=== PATIENT | male | born 1970 | race Hispanic/Latino ===

== ENCOUNTER 2018-03-24 19:16 | Inpatient (IN) | payer MEDICAID ==
[2018-03-24 20:01] LABS: BASO # 0.1 K/uL (0.0-0.2); BASO % 1.2 % (0.0-2.0); EOS % 0.7 % (0.0-4.0); HEMOGLOBIN 12.7 g/dL (12.0-18.0); LYMPH # 2.1 K/uL (1.0-4.3); LYMPH % 31.6 % (20.0-40.0); MEAN CELL VOLUME 100.2 fL (80.0-94.0); MEAN CORPUSCULAR HEMOGLOBIN 33.2 pg (27.0-31.0); MEAN CORPUSCULAR HGB CONC 33.1 g/dL (33.0-37.0); MONO # 0.7 K/uL (0.0-0.8); MONO % 10.5 % (0.0-10.0); NEUT # 3.7 K/uL (1.8-7.0); RBC 3.82 Mil/uL (4.40-5.90); RED CELL DISTRIBUTION WIDTH 16.6 % (11.5-14.5); WHITE BLOOD COUNT 6.7 K/uL (4.8-10.8)
[2018-03-24 20:13] LABS: URINE AMORPHOUS SEDIMENT RARE /ul (<OCC); URINE BACTERIA FEW (<OCC); URINE BILIRUBIN NEGATIVE (NEGATIVE); URINE BLOOD NEGATIVE (NEGATIVE); URINE CLARITY Hazy (Clear); URINE COLOR Yellow (YELLOW); URINE GLUCOSE (UA) NORMAL (Normal); URINE PROTEIN 1+ mg/dL (NEGATIVE); URINE UROBILINOGEN NORMAL mg/dL (0.2-1.0)
[2018-03-24 20:16] LABS: ALB/GLOB RATIO 1.5 (1.0-2.1); ALBUMIN 3.9 g/dL (3.5-5.0); ALT/SGPT 28 U/L (21-72); AST/SGOT 30 U/L (17-59); BLOOD UREA NITROGEN 14 mg/dL (9-20); CALCIUM 9.1 mg/dl (8.6-10.4); GFR NON-AFRICAN AMERICAN > 60
[2018-03-24 20:23] LABS: URINE LEUKOCYTE ESTERASE 1+ Leu/uL (Negative)
[2018-03-24 20:25] LABS: BARBITURATES, UR NEGATIVE (NEGATIVE); BENZODIAZEPINES, UR NEGATIVE (NEGATIVE); OPIATES, UR NEGATIVE (NEGATIVE); PHENCYCLIDINE, UR NEGATIVE (NEGATIVE)
--- NOTE | 2018-03-24 21:35 | C.PDOC ---
History Of Present Illness 48 y/o male pt presents to the ER requesting detox for alcohol. Pt admits to using xanax and ceboxin as well which he buys off the street. His last alcoholic drink was last night. Pt currently has no physical complaints. Time Seen by Provider: 03/24/18 19:36 Chief Complaint (Nursing): Substance Abuse History Per: Patient History/Exam Limitations: no limitations Onset/Duration Of Symptoms: Days Current Symptoms Are (Timing): Still Present Modifying Factor(s): Alcohol, Other (xanax and ceboxin ) Past Medical History Reviewed: Historical Data, Nursing Documentation, Vital Signs Vital Signs: Last Vital Signs Temp 98 F 03/24/18 19:26 Pulse 95 H 03/24/18 19:26 Resp 20 03/24/18 19:26 BP 151/79 H 03/24/18 19:26 Pulse Ox 96 03/24/18 19:26 Surgical History: Coronary Stent Family History: States: No Known Family Hx - Social History Hx Alcohol Use: Yes Hx Substance Use: Yes - Immunization History Hx Tetanus Toxoid Vaccination: No Hx Influenza Vaccination: No Hx Pneumococcal Vaccination: No Review Of Systems Except As Marked, All Systems Reviewed And Found Negative. Constitutional: Positive for: Other (requesting detox for alcohol). Negative for: Fever, Chills Eyes: Negative for: Pain Cardiovascular: Negative for: Chest Pain Respiratory: Negative for: Cough, Shortness of Breath Gastrointestinal: Negative for: Nausea, Vomiting Genitourinary: Negative for: Dysuria, Frequency Musculoskeletal: Negative for: Back Pain Skin: Negative for: Rash Neurological: Negative for: Weakness Psych: Negative for: Suicidal ideation, Other (HI) Physical Exam - Physical Exam Appears: Non-toxic, No Acute Distress Skin: Warm, Dry Head: Normacephalic Eye(s): bilateral: Normal Inspection, EOMI Oral Mucosa: Moist Throat: Normal Neck: Normal ROM, Supple Chest: Symmetrical Cardiovascular: Rhythm Regular Respiratory: Normal Breath Sounds Gastrointestinal/Abdominal: Soft, No Tenderness Neurological/Psych: Oriented x3, Normal Speech ED Course And Treatment - Laboratory Results Result Diagrams: 03/24/18 19:57 03/24/18 19:57 O2 Sat by Pulse Oximetry: 96 (RA) Pulse Ox Interpretation: Normal Medical Decision Making Medical Decision Making: Impression: requesting detox for alcohol Reassess: Pt is resting comfortably. Pt was evaluated by crisis and is now medically cleared for admission. Disposition - Disposition Disposition: HOSPITALIZED Disposition Time: 20:30 Condition: STABLE - Clinical Impression Clinical Impression: Alcohol dependence - Scribe Statement The provider has reviewed the documentation as recorded by the Scribe Rosangela Claudio Provider Attestation: All medical record entries made by the Scribe were at my direction and personally dictated by me. I have reviewed the chart and agree that the record accurately reflects my personal performance of the history, physical exam, medical decision making, and the department course for this patient. I have also personally directed, reviewed, and agree with the discharge instructions and disposition.
[2018-03-25] MEDS ORDERED: Buprenorphine Hydrochloride 2 mg SL ONE ×2 (09:32→10:45)
[2018-03-25] MEDS: Multiple Vitamins Tab PO SCH (09:48)
--- NOTE | 2018-03-25 12:33 | PCM.BM ---
<Jaclyn Christine - Last Filed: 03/25/18 12:33> Treatment Plan Problems - Problems identified on initial assessmt Potential for opioid withdrawal Date Initiated: 03/25/18 Time Initiated: 12:31 Assessment reference: NA Status: Active Potential for alcohol withdrawal Date Initiated: 03/25/18 Time Initiated: 12:32 Assessment reference: NA Status: Active Treatment assets and liabiliti Patient Assests: cooperative, resourceful, self-reliant, cognitively intact, good interpersonal skills Patient Liabilities: financial problems, poor support system, substance abuse - Milieu Protocol Maintain good personal hygiene: daily Encourage regular showers, daily Remind patient to perform daily oral care, daily Assist patient to perform ADL's, every shift Encourage regular showers, every shift Remind patient to perform daily oral care, every shift Assist patient to perform ADL's Maintain personal safety: daily Educate patient to report safety concerns to staff, daily Monitor environment for contraband/sharps, every shift Educate patient to report safety concerns to staff, every shift Monitor environment for contraband/sharps Medication safety: Monitor for expected outcome, potential side effects: daily, every shift, Assess barriers to learning: daily, every shift, Assess readiness for medication education: daily, every shift <Anant Amos - Last Filed: 03/26/18 20:59> - Diagnosis (1) Alcohol dependence Status: Acute Interventions: 03/26/18 20:59 * Assess 7x/week regarding severity of withdrawal * Educate regarding risks, benefits, side effects and alternatives of medications * Use Motivational Interviewing for abstinence * Use CBT for relapse prevention * Medication management for withdrawal symptoms * Encourage medication assisted treatment *
--- NOTE | 2018-03-25 12:37 | PCM.PSYCH ---
Initial Psychiatric Evaluation - Initial Psychiatric Evaluation Type of Admission: Voluntary Legal Status: Capacity Chief Complaint (in patient's own words): "I need detox" History of Present Illness and Precipitating Events: The patient was seen, chart reviewed and case discussed. 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 The patient admits to drinking up to 2 pints of alcohol for the past 4 years. He started in his teens and got worse over time. This is his first detox and he has never been to rehab, NA or AA. The patient also abuses painkillers for the past 5 years, he is using 30 mg OxyContin, 2-3 times a day. He first started in 2007. He states that he used Suboxone on and off for 7 years, to come off OxyContin and currently he is taking [address] He also uses Xanax about 2 mg a day. He started 20 years ago. He quit smoking 6 months ago. Denies other drugs. He suffers from panic attacks and feels somewhat depressed. Not treated. Past psychiatric: Panic disorder, no admissions and no suicide attempts. Family psychiatric: Brother is an alcoholic he says and there are people with panic disorder. Medical history: He has high blood pressure, heart disease and he had a stent placement. Current Medications: Active Medications Generic Name Dose Route Start Last Admin Trade Name Freq PRN Reason Stop Dose Admin Buprenorphine HCl 0 mg 03/26/18 10:00 Subutex SL 03/30/18 09:59 .TAPER [place] Taper Chlordiazepoxide 50 mg 03/25/18 00:00 03/25/18 11:57 Librium PO 03/29/18 23:59 50 mg Q6 [place] Administration Taper Chlordiazepoxide 25 mg 03/24/18 22:33 Librium PO Q4H PRN Alcohol Withdrawal Clonidine HCl 0.1 mg 03/24/18 22:33 03/25/18 06:01 Catapres PO 0.1 mg Q4H PRN Administration Symptoms of alcohol withdrawl Folic Acid 1 mg 03/25/18 10:00 03/25/18 09:48 Folic Acid PO 1 mg DAILY [place] Administration Gabapentin 300 mg 03/25/18 10:00 03/25/18 09:49 Neurontin PO 300 mg BID [place] Administration Hydroxyzine HCl 50 mg 03/24/18 22:38 Atarax PO Q6H PRN Anxiety Ibuprofen 600 mg 03/24/18 22:38 03/25/18 06:00 Motrin Tab PO 600 mg Q6H PRN Administration Pain, moderate (4-7) Losartan Potassium 50 mg 03/25/18 12:45 Cozaar PO DAILY [place] Metoprolol Tartrate 50 mg 03/25/18 18:00 Lopressor PO BID [place] Multivitamins 1 tab 03/25/18 10:00 03/25/18 09:48 Hexavitamin PO 1 tab DAILY [place] Administration Thiamine HCl 100 mg 03/25/18 10:00 03/25/18 09:49 Vitamin B1 Tab PO 100 mg DAILY [place] Administration Trazodone HCl 100 mg 03/24/18 22:38 03/24/18 23:32 Desyrel PO 100 mg HS PRN Administration Insomnia Past Psychiatric History - Past Psychiatric History Previous Treatment History: Intensive Outpatient Pertinent Medical Hx (Current Medical&Sleep Prob, Allergies): Allergies Allergy/AdvReac Type Severity Reaction Status Date / Time No Known Allergies Allergy Unverified 03/24/18 19:35 Review of Systems - Neurological Neurological: UNREMARKABLE - Psychiatric Psychiatric: Abnormal Sleep Pattern, Anxiety, Change in Appetite, Depression, Difficulty Concentrating, Mood Swings, Panic Attacks. absent: Homicidal Ideation, Paranoia, Suicidal Ideation Mental Status Examination - Personal Presentation Personal Presentation: Looks older than stated age - Affect Affect: Constricted - Motor Activity Motor Activity: Calm - Reliability in Providing Information Reliability in Providing Information: Good - Speech Speech: Organized - Mood Mood: Depressed, Anxious - Formal Thought Process Formal Thought Process: No Impairment - Cognitive Functions Orientation: Person, Place, Situation, Time Sensorium: Alert Attention/Concentration: Easily distracted Estimate of Intelligence: Average Judgement: Intact, as evidence by: Insight regarding need for hospitalization Memory: Recent intact, as evidence by: Ability to recall events of the day, Remote intact, as evidenced by: Abilit to recall sig. life events - Risk Risk: Withdrawal, Diminished functioning - Strength & Assets Inventory Strength & Assets Inventory: Cooperative - Limitations Limitations: Living alone DSM 5 DX - DSM 5 DSM 5 Diagnosis: Alcohol withdrawal Alcohol use disorder, severe Opioid use disorder, severe Opioid withdrawal Subjective, hypnotic or anxiolytic use disorder, moderate Tobacco use disorder in early remission Panic disorder without agoraphobia Depressive disorder, unspecified Hypertension CAD, status post stent placement - Recommended/Plan of Treatment Treatment Recommendations and Plan of Treatment: Taper with Subutex and Librium Gabapentin for augmentation Lexapro for Panic disorder As needed medications All risks, benefits and alternatives of the meds discussed, and the pt agreed and understood. Attend groups and activities Supportive therapy and psychoeducation [place] for abstinence CBT for relapse prevention Encourage MAT Refer to rehab or IOP, and self-help groups Teach healthy lifestyle methods, i.e. diet, exercise, meditation Smoking cessation with [place] Nicotine patch if needed 34 min Projected ELOS: 5 days Prognosis: good with treatment Discharge Plan and Discharge Criteria: Thank you MAT and or IOP. Patient does not want rehab - Smoking Cessation Smoking Cessation Initiated: No Reason for not providing: non-smoker
[2018-03-25] MEDS: diltiaZEM 120 mg/24 Hours CD Cap PO SCH (13:44)
[2018-03-26] MEDS: Multiple Vitamins Tab PO SCH (09:07)
[2018-03-26] MEDS: diltiaZEM 120 mg/24 Hours CD Cap PO SCH (09:08)
[2018-03-26] MEDS: Buprenorphine Hydrochloride 2 mg SL SCH (09:09)
--- NOTE | 2018-03-26 21:16 | PCM.PYCHPN ---
Psychiatric Progress Note - Psychiatric Progress Note Patient seen today, length of contact: 16 min Patient Chief Complaint: "I'm anxious" Problems Identified/Issues Discussed: The pt is seen, chart reviewed, case discussed with staff. The pt is compliant with medications and reports no side-effects. Symptoms are improving but needs more time to stabilize. Pt attends groups and activities. Support given, psycho-education provided. After care discussed. Medication Change: Yes (detox changes daily) Medical Record Reviewed: Yes Mental Status Examination - Cognitive Function Orientation: Person, Place, Situation, Time Memory: Intact Attention: WNL Concentration: Poor Association: WNL Fund of Knowledge: WNL - Mood Mood: Depressed, Anxious - Affect Affect: Constricted - Speech Speech: Appropriate - Formal Thought Process Formal Thought Process: No Impairment - Suicidal Ideation Suicidal Ideation: No - Homicidal Ideation Homicidal Ideation: No Goal/Treatment Plan - Goal/Treatment Plan Need for Continued Stay: Discharge may exacerbated symptoms, Severe functional impairment Progress Toward Problem(s) and Goals/Treatment Plan: Taper with Subutex and Librium Gabapentin for augmentation Lexapro for Panic disorder As needed medications All risks, benefits and alternatives of the meds discussed, and the pt agreed and understood. Attend groups and activities Supportive therapy and psychoeducation [place] for abstinence CBT for relapse prevention Encourage MAT Refer to rehab or IOP, and self-help groups Teach healthy lifestyle methods, i.e. diet, exercise, meditation Smoking cessation with [place] Nicotine patch if needed
[2018-03-27] MEDS: Buprenorphine Hydrochloride 2 mg SL SCH (09:37)
[2018-03-27] MEDS: diltiaZEM 120 mg/24 Hours CD Cap PO SCH (09:37)
[2018-03-27] MEDS: Multiple Vitamins Tab PO SCH (09:37)
--- NOTE | 2018-03-27 11:44 | RAD ---
Date of service: 03/27/2018 HISTORY: rehab placement COMPARISON: No prior. TECHNIQUE: Chest PA and lateral FINDINGS: LUNGS: Right upper lobe infiltrate/scarring. The etiology/significance uncertain. PLEURA: Fibronodular changes extend to the pleura with focal apical pleural thickening on the right. CARDIOVASCULAR: No aortic atherosclerotic calcification present. Normal cardiac size. No pulmonary vascular congestion. OSSEOUS STRUCTURES: No significant abnormalities. VISUALIZED UPPER ABDOMEN: Normal. OTHER FINDINGS: None. IMPRESSION: Right upper lobe scarring/infiltrate. Follow-up recommended.
--- NOTE | 2018-03-27 13:40 | PCM.PYCHPN ---
Psychiatric Progress Note - Psychiatric Progress Note Patient seen today, length of contact: 17 min Patient Chief Complaint: "I'm still very anxious" Problems Identified/Issues Discussed: The pt is seen, chart reviewed, case discussed with staff. Support and psychoeducation given, CBT and [place] used briefly No new symptoms reported, improving slowly and needs more time Still c/o same anxiety and insomnia despite new meds Doses adjusted No SEs from medications, risks discussed. After care discussed. Medication Change: Yes (detox changes daily) Medical Record Reviewed: Yes Mental Status Examination - Cognitive Function Orientation: Person, Place, Situation, Time Memory: Intact Attention: WNL Concentration: Poor Association: WNL Fund of Knowledge: WNL - Mood Mood: Depressed, Anxious - Affect Affect: Constricted - Speech Speech: Appropriate - Formal Thought Process Formal Thought Process: No Impairment - Suicidal Ideation Suicidal Ideation: No - Homicidal Ideation Homicidal Ideation: No Goal/Treatment Plan - Goal/Treatment Plan Need for Continued Stay: Discharge may exacerbated symptoms, Severe functional impairment Progress Toward Problem(s) and Goals/Treatment Plan: Taper with Subutex and Librium Gabapentin for augmentation Lexapro for Panic disorder As needed medications All risks, benefits and alternatives of the meds discussed, and the pt agreed and understood. Attend groups and activities Supportive therapy and psychoeducation [place] for abstinence CBT for relapse prevention Encourage MAT Refer to rehab or IOP, and self-help groups Teach healthy lifestyle methods, i.e. diet, exercise, meditation Smoking cessation with [place] Nicotine patch if needed
[2018-03-27] MEDS ORDERED: Aluminum Hydroxide/Magnesium Hydroxide Susp (30 mL) PO PRN (17:11)
[2018-03-28] MEDS: Multiple Vitamins Tab PO SCH (09:16)
[2018-03-28] MEDS: Buprenorphine Hydrochloride 2 mg SL SCH (09:16)
[2018-03-28] MEDS: diltiaZEM 120 mg/24 Hours CD Cap PO SCH (10:48)
--- NOTE | 2018-03-28 10:56 | PCM.PYCHPN ---
Psychiatric Progress Note - Psychiatric Progress Note Patient seen today, length of contact: 17 min Patient Chief Complaint: I am still withdrawing.' Problems Identified/Issues Discussed: Patient was seen and evaluated, chart reviewed and discussed with the staff. Patient still reports withdrawal symptoms and still reports sweating, headaches, anxiety and shakes. Patient reports depressed mood, poor sleep and poor appetite. However he denies any feelings of hopelessness and helplessness. He denies any auditory hallucinations or any paranoia. He is compliant with the withdrawal medications and denies any side effects Symptoms are improving but he needs to stay longer for further stabilization. Supportive therapy was given Medication Change: Yes (detox changes daily) Medical Record Reviewed: Yes Mental Status Examination - Cognitive Function Orientation: Person, Place, Situation, Time Memory: Intact Attention: WNL Concentration: Poor Association: WNL Fund of Knowledge: WNL - Mood Mood: Depressed, Anxious - Affect Affect: Constricted - Speech Speech: Appropriate - Formal Thought Process Formal Thought Process: No Impairment - Suicidal Ideation Suicidal Ideation: No - Homicidal Ideation Homicidal Ideation: No Goal/Treatment Plan - Goal/Treatment Plan Need for Continued Stay: Discharge may exacerbated symptoms, Severe functional impairment Progress Toward Problem(s) and Goals/Treatment Plan: Alcohol withdrawal Alcohol use disorder, severe Opioid use disorder, severe Opioid withdrawal Subjective, hypnotic or anxiolytic use disorder, moderate Tobacco use disorder in early remission Panic disorder without agoraphobia Depressive disorder, unspecified Hypertension CAD, status post stent placement Taper with Subutex and Librium Gabapentin for augmentation Lexapro for Panic disorder As needed medications All risks, benefits and alternatives of the meds discussed, and the pt agreed and understood. Attend groups and activities Supportive therapy and psychoeducation [place] for abstinence CBT for relapse prevention Encourage MAT Refer to rehab or IOP, and self-help groups Teach healthy lifestyle methods, i.e. diet, exercise, meditation Smoking cessation with [place] Nicotine patch if needed - Smoking Cessation Smoking Cessation Initiated: No
[2018-03-29 06:14] VITALS: O2SAT 96
[2018-03-29] MEDS: Multiple Vitamins Tab PO SCH (09:13)
[2018-03-29] MEDS: diltiaZEM 120 mg/24 Hours CD Cap PO SCH (09:14)
[2018-03-29] MEDS: Buprenorphine Hydrochloride 2 mg SL SCH (09:14)
[2018-03-29 10:27] VITALS: BP 125/81; PULSE 89; RESP 19; TEMP 98
--- NOTE | 2018-03-29 21:05 | PCM.PYCHDC ---
Mental Status Examination - Mental Status Examination Orientation: Person, Place, Situation, Time Memory: Intact Mood: Neutral Affect: Other (Appropriate) Speech: Appropriate Attention: WNL Concentration: WNL Association: WNL Fund of Knowledge: WNL Formal Thought Process: No Impairment Description of patient's judgement and insight: Fair Psychotic Thoughts and Behaviors: None Suicidal Ideation: No Current Homicidal Ideation?: No Discharge Summary - Discharge Note Reason for Hospitalization: Alcohol use disorder severe. Opioid use disorder severe. Panic disorder. Depressive disorder unspecified Laboratory Data: Reviewed Consultations:: List each consultation separately and include: 1. Reason for request. 2. Findings. 3. Follow-up Summary of Hospital Course include:: 1. Description of specific treatment plan utilized for patients during their course of treatmen. 2. Summarize the time- course for resolution of acute symptoms and/or regressed behaviors. 3. Describe issues identified and worked on during hospitalization. 4. Describe medication utilized. 5. Describe medical problems identified and treated. 6. Reassessment of suicide risk Summary of Hospital Course: The patient was seen, chart reviewed and case discussed. 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 The patient admits to drinking up to 2 pints of alcohol for the past 4 years. He started in his teens and got worse over time. This is his first detox and he has never been to rehab, NA or AA. The patient also abuses painkillers for the past 5 years, he is using 30 mg OxyContin, 2-3 times a day. He first started in 2007. He states that he used Suboxone on and off for 7 years, to come off OxyContin and currently he is taking [address] He also uses Xanax about 2 mg a day. He started 20 years ago. He quit smoking 6 months ago. Denies other drugs. He suffers from panic attacks and feels somewhat depressed. Not treated. Past psychiatric: Panic disorder, no admissions and no suicide attempts. Family psychiatric: Brother is an alcoholic he says and there are people with panic disorder. Medical history: He has high blood pressure, heart disease and he had a stent placement. During his stay in the hospital patient was treated with Subutex for opioid withdrawal and also with Librium for alcohol withdrawal. Patient was also started on other when necessary medications. Patient was also attending groups and other activities on the unit. With above treatment patient started feeling better. Today patient was stable had no withdrawal symptoms and was ready to discharge from the hospital. At the time of evaluation and discharge, patient was awake, alert and oriented 3, had no delusions, no auditory or visual hallucinations, no suicidal idea tions or homicidal ideations. Patient was discharged in a stable condition. - Final Diagnosis (DSM 5) Condition upon Discharge: STABLE Disposition: HOME/ ROUTINE Follow-up Treatment Plan: Patient will go to [facility] for follow-up care after discharge from the hospital. Prescriptions/Medication Reconciliation: RX: Escitalopram [Lexapro] 10 mg PO DAILY #30 tab RX: Gabapentin [Neurontin] 400 mg PO TID #90 cap RX: Losartan [Cozaar] 50 mg PO DAILY #30 tab RX: Metoprolol Tartrate [Lopressor] 50 mg PO BID #30 tab RX: Mirtazapine [Remeron] 30 mg PO HS #30 tab RX: QUEtiapine [Seroquel] 100 mg PO HS #30 tab RX: traZODone [Desyrel] 100 mg PO HS PRN #30 tab PRN Reason: Sleep - Smoking Cessation Smoking Cessation Medication prescribed: No - Antipsychotic Medications Pt discharged on 2 or more routine antipsychotic medications: No
--- NOTE | 2018-03-30 18:34 | PCM.PYCHDC ---
Mental Status Examination - Mental Status Examination Orientation: Person, Place, Situation, Time Memory: Intact Mood: Neutral Affect: Other (Appropriate) Speech: Appropriate Attention: WNL Concentration: WNL Association: WNL Fund of Knowledge: WNL Formal Thought Process: No Impairment Description of patient's judgement and insight: Good Psychotic Thoughts and Behaviors: None Suicidal Ideation: No Current Homicidal Ideation?: No Discharge Summary - Discharge Note Reason for Hospitalization: Alcohol use disorder severe. Opioid use disorder severe. Panic disorder. Depressive disorder unspecified Laboratory Data: Reviewed Consultations:: List each consultation separately and include: 1. Reason for request. 2. Findings. 3. Follow-up Summary of Hospital Course include:: 1. Description of specific treatment plan utilized for patients during their course of treatmen. 2. Summarize the time- course for resolution of acute symptoms and/or regressed behaviors. 3. Describe issues identified and worked on during hospitalization. 4. Describe medication utilized. 5. Describe medical problems identified and treated. 6. Reassessment of suicide risk Summary of Hospital Course: The patient was seen, chart reviewed and case discussed. 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 The patient admits to drinking up to 2 pints of alcohol for the past 4 years. He started in his teens and got worse over time. This is his first detox and he has never been to rehab, NA or AA. The patient also abuses painkillers for the past 5 years, he is using 30 mg OxyContin, 2-3 times a day. He first started in 2007. He states that he used Suboxone on and off for 7 years, to come off OxyContin and currently he is taking [address] He also uses Xanax about 2 mg a day. He started 20 years ago. He quit smoking 6 months ago. Denies other drugs. He suffers from panic attacks and feels somewhat depressed. Not treated. Past psychiatric: Panic disorder, no admissions and no suicide attempts. Family psychiatric: Brother is an alcoholic he says and there are people with panic disorder. Medical history: He has high blood pressure, heart disease and he had a stent placement. During his stay in the hospital patient was treated with Subutex for opioid withdrawal and also with Librium for alcohol withdrawal. Patient was also started on other when necessary medications. Patient was also attending groups and other activities on the unit. With above treatment patient started feeling better. Today patient was stable had no withdrawal symptoms and was ready to discharge from the hospital. At the time of evaluation and discharge, patient was awake, alert and oriented 3, had no delusions, no auditory or visual hallucinations, no suicidal idea tions or homicidal ideations. Patient was discharged in a stable condition. - Final Diagnosis (DSM 5) Condition upon Discharge: STABLE Disposition: HOME/ ROUTINE Follow-up Treatment Plan: Patient will go to [facility] for follow-up care after discharge from the hospital. Prescriptions/Medication Reconciliation: RX: Escitalopram [Lexapro] 10 mg PO DAILY #30 tab RX: Gabapentin [Neurontin] 400 mg PO TID #90 cap RX: Losartan [Cozaar] 50 mg PO DAILY #30 tab RX: Metoprolol Tartrate [Lopressor] 50 mg PO BID #30 tab RX: Mirtazapine [Remeron] 30 mg PO HS #30 tab RX: QUEtiapine [Seroquel] 100 mg PO HS #30 tab RX: traZODone [Desyrel] 100 mg PO HS PRN #30 tab PRN Reason: Sleep - Smoking Cessation Smoking Cessation Medication prescribed: No - Antipsychotic Medications Pt discharged on 2 or more routine antipsychotic medications: No
== END 2018-03-29 12:20 | disposition home or self-care (01) | DRG 745 ==
LOC: C.ER 19:16 → C.7D 21:29
PROVIDERS: ADMIT Psychiatry & Neurology Psychiatry; ATTEND Psychiatry & Neurology Psychiatry
PROC: HZ52ZZZ Individual Psychotherapy for Substance Abuse Treatment, Cognitive-Behavioral (ICD-10-PCS; principal; 2018-03-24)
PROC: HZ2ZZZZ Detoxification Services for Substance Abuse Treatment (ICD-10-PCS; 2018-03-24)
PROC: GZHZZZZ Group Psychotherapy (ICD-10-PCS; 2018-03-24)
PROC: HZ59ZZZ Individual Psychotherapy for Substance Abuse Treatment, Supportive (ICD-10-PCS; 2018-03-24)
PROC: HZ56ZZZ Individual Psychotherapy for Substance Abuse Treatment, Psychoeducation (ICD-10-PCS; 2018-03-24)
PROC: HZ42ZZZ Group Counseling for Substance Abuse Treatment, Cognitive-Behavioral (ICD-10-PCS; 2018-03-24)
PROC: HZ46ZZZ Group Counseling for Substance Abuse Treatment, Psychoeducation (ICD-10-PCS; 2018-03-24)
PROC: GZ58ZZZ Individual Psychotherapy, Cognitive-Behavioral (ICD-10-PCS; 2018-03-24)
PROC: GZ56ZZZ Individual Psychotherapy, Supportive (ICD-10-PCS; 2018-03-24)
DX: F11.23 Opioid dependence with withdrawal (principal); F10.230 Alcohol dependence with withdrawal, uncomplicated; F13.20 Sedative, hypnotic or anxiolytic dependence, uncomplicated; F41.9 Anxiety disorder, unspecified; F17.201 Nicotine dependence, unspecified, in remission; F41.0 Panic disorder [episodic paroxysmal anxiety]; F32.9 Major depressive disorder, single episode, unspecified; G47.00 Insomnia, unspecified; I10 Essential (primary) hypertension; I25.10 Atherosclerotic heart disease of native coronary artery without angina pectoris; Z81.1 Family history of alcohol abuse and dependence; Z95.5 Presence of coronary angioplasty implant and graft; Y90.0 Blood alcohol level of less than 20 mg/100 ml